=== PATIENT | male | born 1940 | race Caucasian/White ===

== ENCOUNTER 2016-09-26 14:39 | Inpatient (IN) | payer MEDICARE ==
[~2016-09-26] VITALS: Ht 167.6 cm; Wt 81.8 kg
[2016-10-01] MEDS ORDERED: ATOR10TA15 PO (10:52)
[2016-10-01] MEDS ORDERED: LISI20TA PO (10:52)
[2016-10-01] MEDS ORDERED: DILT-60 PO (10:52)
[2016-10-01] MEDS ORDERED: ALPR.25 PO (10:52)
[2016-10-01] MEDS ORDERED: HYDR-3580 PO (10:52)
--- NOTE | 2016-10-01 17:59 | MH ---
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 HISTORY OF THE PRESENT ILLNESS This patient is a 76-year-old white male who came to previous right total replacement arthroplasty in the past by the undersigned. The patient has had progressive arthritis of the left hip and is having progressive loss of motion. His care has been delayed because of bladder cancer and is undergoing treatment with intracystic chemotherapy. The patient is having difficulty using a cane and getting around. He is very limited and sometimes uses a wheelchair. The patient had conservative care including multiple injections in the left hip, oral anti-inflammatory medications, physical therapy, use of a gait aid. He now presents for surgical treatment. PAST MEDICAL HISTORY, SOCIAL HISTORY, FAMILY HISTORY AND REVIEW OF SYMPTOMS See attached notes. PHYSICAL EXAMINATION VITAL SIGNS: 5 feet 6 inches, 190 pounds, BMI 30.03, blood pressure 126/66. HEENT: Normocephalic, atraumatic. Pupils equal, round, reactive to light and accommodation. Extraocular motions intact. NECK: Supple. CHEST: Clear. HEART: Regular rate and rhythm. ABDOMEN: Soft, nontender, normoactive bowel sounds. MUSCULOSKELETAL: Left hip severe pain with range of motion. Pain especially with internal and external rotation. Flexion limited to 80 degrees, extension -10 degrees. Internal rotation 0, external rotation 30. Significant pain with range of motion. There is weakness with isolation of the left psoas muscle. NEUROLOGIC: Examination is within normal limits. IMPRESSION Osteoarthritis left hip / avascular necrosis. PLAN Left total hip replacement arthroplasty, direct anterior exposure. CONSENT The risks of surgery including infection, bleeding, loss of motion, continued pain, need for further surgery, neurologic and vascular injury. The patient's understands these issues and wishes to press on with surgery as outlined above. MD JOANIE Rogers/MARCELAL /5:33 PM /5:46 PM
[2016-10-02] MEDS ORDERED: ceFAZolin 2 GM PREMIX 50 ML IV SCH (08:30)
[2016-10-02] MEDS ORDERED: POVIDONE IODINE 7.5% SCRUB 118 ML BOTTLE TOPICAL SCH (08:30)
[2016-10-02] MEDS ORDERED: VANCOMYCIN 1000 MG/NS 250 ML (for <70 kg) IV SCH ×2 (08:30)
[2016-10-02] MEDS ORDERED: EXPAREL PERI-ARTICULAR INJECTION (TOTAL VOL. 60 ML) P-ARTICULR SCH ×2 (08:30)
[2016-10-02 08:45] VITALS: BP 159/74; PULSE 65; RESP 18; TEMP 97.9; O2SAT 98
[2016-10-02] MEDS ORDERED: MIDAZOLAM HCL 2 MG/2 ML VIAL ONE (09:22)
[2016-10-02] MEDS ORDERED: FAMOTIDINE 20 MG/2 ML VIAL ONE (09:22)
[2016-10-02] MEDS ORDERED: ACETAMINOPHEN 1000 MG/100 ML VIAL IV ONE (09:22)
[2016-10-02] MEDS ORDERED: fentaNYL CITRATE 250 MCG/5 ML AMP ONE ×2 (09:22→14:33)
[2016-10-02] MEDS ORDERED: CHLORHEXIDINE GLUCONATE 2 % 1 PACK (2 CLOTHS) TOPICAL PRN (09:30)
[2016-10-02] MEDS ORDERED: LACTATED RINGER'S 1000 ML IV PRN (09:30)
[2016-10-02] MEDS ORDERED: SODIUM CHLORID 0.9% 500 ML IV PRN (09:30)
[2016-10-02] MEDS ORDERED: INSULIN HUMAN REGULAR 1,000 UNITS/10 ML VIAL SQ PRN (09:30)
[2016-10-02] MEDS ORDERED: POVIDONE IODINE 5% (ANTISEPSIS KIT) 4 APPLICATIONS EACH NARE PRN (09:30)
[2016-10-02] MEDS ORDERED: METOPROLOL TARTRATE 25 MG TAB PO PRN (09:30)
[2016-10-02] MEDS ORDERED: NEOSTIGMINE 3 MG/3 ML SYR IV ONE (10:24)
[2016-10-02] MEDS ORDERED: PROPOFOL 200 MG/20 ML AMP IV ONE (10:24)
[2016-10-02] MEDS: TRANEXAMIC ACID INJ 855 MG in SODIUM CHLORIDE 0.9% INJ 100 ML IV SCH ×2 (10:25→11:18)
[2016-10-02] MEDS ORDERED: PHENYLEPH/NS 1000 MCG/10 ML SYR IV ONE (10:25)
[2016-10-02] MEDS ORDERED: LACTATED RINGER'S 1000 ML INJ 2,000 ML IV ONE (10:26)
[2016-10-02] MEDS ORDERED: GENTAMICIN SULFATE 80 MG/2 ML VIAL IRRIGATION ONE (11:02)
[2016-10-02] MEDS ORDERED: SODIUM CHLORIDE 0.9% FLUSH 5 ML FLUSH IVF PRN (12:15)
[2016-10-02] MEDS ORDERED: Post-op Orders (for Pharmacy) MISC XX ONE (12:15)
[2016-10-02] MEDS ORDERED: MORPHINE SULFATE 30 MG/30 ML PCA IV SCH (12:15)
[2016-10-02] MEDS ORDERED: ACETAMINOPHEN/HYDROcodone 325 MG/10 MG TAB PO PRN (12:15)
[2016-10-02] MEDS ORDERED: MISCELLANEOUS NURSING INFORMATION XX PRN (12:15)
[2016-10-02] MEDS ORDERED: NALOXONE HCL 0.4 MG/ML AMP IV PRN (12:15)
[2016-10-02] MEDS ORDERED: MORPHINE SULFATE 8 MG/ML INJ IM PRN (12:15)
[2016-10-02] MEDS ORDERED: MISCELLANEOUS PHARMACY INFORMATION XX ONE (12:15)
[2016-10-02] MEDS ORDERED: ALPRAZolam 0.25 MG TAB PO PRN (12:15)
--- NOTE | 2016-10-02 12:18 | PD.OP ---
cc: Shemar Servin MD Operative Report Date of Surgery: October 02, 2016 Preoperative Diagnosis: Osteoarthritis left hip, severe Postoperative Diagnosis: Same Procedure: Left total hip replacement arthroplasty, direct anterior exposure Anesthesia: Gen. Surgeon: Shemar Servin Spiral Tube Winder Helper(s): DUKE Sweeney Operation and Findings: EBL: 350 cc INDICATION: This patient presents with significant hip pain related to severe osteoarthritis of the left hip. The patient has had a previous right total hip replacement and has done well. Despite extensive conservative care this patient continues to be painful and now presents for surgical treatment. NOTE: Claudia Sweeney PA-C was present for the entire surgical procedure as my library services assistant. In my medical opinion her skill and care was necessary for the proper management of this patient. COMPONENTS: COMPANY: [employer] CUP: Pelzer, 56 mm, 100 series, gription surface LINER: Altrx 36, neutral STEM: Size 12, high offset, Corail, hydroxyapatite-coated HEAD: 36, metal, +5, 12/14 taper PROCEDURE: This patient was brought to the operating room and anesthetized in the supine position and positioned on the fracture table with both legs held extended. The left hip and leg was scrubbed with alcohol followed by Hibiclens followed by ChloraPrep and draped sterilely. Antibiotics were given within routine time window and a timeout was done. A 4 inch incision was made starting 2 cm distal and 2 cm lateral to the anterior superior iliac spine. The fascia monik was opened longitudinally. The interval between the fascia monik and the rectus was opened down to the capsule of the hip joint. Retractors were positioned allowing good visualization of the capsule. This was opened longitudinally and flaps were created. Stay sutures were utilized. Exposure was excellent. The neck was cut at the proper location using fluoroscopy as a guide. The head was removed. Deep retractors were positioned allowing good visualization of the acetabulum. Acetabulum was deepened down to the floor starting with a proper size reamer and reaming up to 55 mm. A trial was utilized. Fluoroscopy was used to check position and confirmed satisfactory alignment. The rim was reamed with a 56 mm reamer and the final cup was positioned in approximately 20 of anteversion and 40-45 of abduction. Position was satisfactory. A single hole eliminator was positioned followed by the final liner. The lifting hook was utilized. The leg was dropped to the floor, maximally externally rotated and brought across the midline. Retractors were positioned. A box osteotome was utilized followed by progressive broaching to the proper stem size. Trial reduction showed excellent alignment and fit. With 60 of external rotation the leg was dropped to the floor without evidence of anterior subluxation. The wound was irrigated. The final stem was inserted and was found to be very stable. The final reduction using the final head. Stability was as previously noted. Intraoperative x-rays were taken. The wound was irrigated copiously. Hemostasis was controlled. Local anesthesia was utilized. The capsule was repaired with #2 Tycron sutures. The fascia monik was repaired with running 0 PDS on a loop. Subcutaneous tissue was approximated with 2-0 Vicryl and skin with running intradermal 3-0 Vicryl followed by Steri-Strips. A sterile dressing was applied. The patient was awakened and taken to the recovery room in satisfactory condition. FINDINGS: There was severe osteoarthritis of the left hip. There was subchondral cystic changes in the acetabulum and femoral head. The final solution appeared be very satisfactory. No complication was appreciated. Shemar Servin MD October 02, 2016 12:18
[2016-10-02] MEDS ORDERED: XARE10TA PO (12:21)
[2016-10-02] MEDS ORDERED: HYDR-3583 PO (12:21)
--- NOTE | 2016-10-02 12:24 | HHI.FF ---
Face to Face Verification Diagnosis: (1) Primary osteoarthritis of left hip Physical Therapy Gait training Hip: Total hip, Protocol: Left, Progress to weight bearing Left LE Weight Bearing: WB as tolerated Nursing RN: 3 days/week x 2 weeks Dressing Changes: Do not change dressing I have seen patient Patrick Dasilva on 10/02/16. My clinical findings support the need for the requested home health care services because: Deconditioned w/ increased weakness Limited ability to care for self High risk of falls I certify that my clinical findings support that this patient is homebound because: Unsteady gait/balance Shemar Servin MD October 02, 2016 12:23
[2016-10-02] MEDS ORDERED: WALKER WHEELS/F1 MIS (12:25)
[2016-10-02] MEDS ORDERED: DO NOT ADM ANY ANTICOAGULANT DRUGS PRN (12:48)
[2016-10-02] MEDS: LACTATED RINGER'S 1000 ML INJ 1,000 ML IV SCH (13:00)
[2016-10-02] MEDS: PCA - TOTAL MG MORPHINE DELIVERED PER SHIFT SCH ×2 (14:00→21:17)
[2016-10-02] MEDS ORDERED: MORPHINE SULFATE 4 MG/ML INJ ONE (14:34)
--- NOTE | 2016-10-02 14:39 | RADRPT ---
EXAM DATE/TIME: 10/02/2016 11:06 [facility] COMPARISON: HIP LEFT (AP&LAT 2/3VWS) WO AP PELVIS, April 18, 2016, 13:12. INDICATIONS : Left total hip replacement. MEDICAL HISTORY : None. SURGICAL HISTORY : None. ENCOUNTER: Initial ACUITY: 1 day PAIN SCORE: Non-responsive. LOCATION: Left hip. FINDINGS: Left total hip arthroplasty is present. Hardware is intact. Alignment is anatomic. Visualized adjacen t pelvis is unremarkable. CONCLUSION: Satisfactory appearance of left ALEX Reinier Hyde MD on October 02, 2016 at 14:36 Board Certified Radiologist. This report was verified electronically.
[2016-10-02 15:00] VITALS: BP 135/79; PULSE 66; RESP 18; TEMP 96.8; O2SAT 98
[2016-10-02] MEDS ORDERED: ONDANSETRON HCL 4 MG/2 ML VIAL IV PRN (17:00)
[2016-10-02 19:00] VITALS: BP 138/76; PULSE 71; RESP 16; TEMP 98; O2SAT 95
[2016-10-02] MEDS: MAGNESIUM HYDROXIDE SUSP 30 ML CUP PO SCH (20:03)
[2016-10-02] MEDS: ATORVASTATIN 10 MG TAB PO SCH (20:03)
[2016-10-02] MEDS: SENNOSIDES 8.6 MG TAB PO SCH (20:04)
[2016-10-02] MEDS: SODIUM CHLORIDE 0.9% FLUSH 5 ML FLUSH IVF SCH (20:04)
[2016-10-02] MEDS ORDERED: NON-FORMULARY DRUG (Lisinopril-Hctz 1 TAB) PO SCH (21:00)
[2016-10-03] VITALS (7 sets, daily range): BP systolic 97–143; BP diastolic 51–69; PULSE 79–94; RESP 15–18; TEMP 96.7–99.8; O2SAT 93–97
[2016-10-03] MEDS: LACTATED RINGER'S 1000 ML INJ 1,000 ML IV SCH ×3 (02:10→22:52)
[2016-10-03] MEDS: PCA - TOTAL MG MORPHINE DELIVERED PER SHIFT SCH (06:00)
[2016-10-03 06:50] LABS: HEMATOCRIT 31.4 % (39.0-51.0); REVIEW FLAG FINAL
--- NOTE | 2016-10-03 07:53 | PD.ORT.PN ---
Subjective Subjective Remarks Looks good. Comfortable in bed. Limited ambulation yesterday Objective Vitals Vital Signs Date Time Temp Pulse Resp B/P Pulse Ox O2 Delivery O2 Flow Rate FiO2 10/03/16 04:00 98.8 84 17 121/63 95 10/03/16 00:00 98.7 84 15 97/58 94 10/02/16 21:17 16 10/02/16 19:00 98.0 71 16 138/76 95 10/02/16 15:00 96.8 66 18 135/79 98 10/02/16 14:00 98.4 80 16 173/74 98 Nasal Cannula 2 10/02/16 13:46 16 10/02/16 13:45 59 16 153/64 100 Nasal Cannula 2 10/02/16 13:30 60 16 153/64 100 Nasal Cannula 2 10/02/16 13:15 63 16 145/73 100 Nasal Cannula 2 10/02/16 13:00 65 16 146/61 96 Nasal Cannula 2 10/02/16 12:48 98.0 80 16 146/70 98 Nasal Cannula 2 10/02/16 08:45 97.9 65 18 159/74 98 I/O 10/02/16 10/02/16 10/02/16 10/03/16 10/03/16 10/03/16 07:00 15:00 23:00 07:00 15:00 23:00 Intake Total 2200 ml 1060 ml 1776 ml Output Total 750 ml 950 ml 500 ml Balance 1450 ml 110 ml 1276 ml Intake Oral 480 ml 960 ml IV Total 200 ml 580 ml 816 ml Other 2000 ml Output Urine Total 200 ml 950 ml 500 ml Estimated Blood Loss 200 ml Other 350 ml # Voids 1 # Bowel Movements 0 0 Result Diagram: 10/03/16 0557 Objective Remarks Incision dry. No drainage. No significant swelling. Minimal discomfort with range of motion. Negative home &. tenderness or swelling. Assessment & Plan Ortho Post Op Day #: 1 Problem List: Assessment and Plan Osteoarthritis left hip, severe. Left ALEX, direct anterior: POD #1. PLAN: Weightbearing as tolerated Xarelto for anticoagulation Hydrocodone for pain No dressing change Discharge later today or Thursday morning Home healthcare and home physical therapy Follow-up in 2 weeks. Shemar Servin MD October 03, 2016 07:53
--- NOTE | 2016-10-03 08:00 | HHI.DS ---
Discharge Summary Admission Date October 02, 2016 at 07:59 Discharge Date: October 04, 2016 Admitting Diagnosis Osteoarthritis hip, severe Diagnosis: (1) Primary osteoarthritis of left hip Diagnosis: Principal Procedures Left ALEX, direct anterior exposure Brief History This is a 76 year old male patient who presents with severe osteoarthritis left hip and significant subchondral sclerotic changes with subchondral cysts. The patient has had extensive conservative care including oral medications, use of a cane and walker, multiple injections in the left hip. Left hip treatment was delayed because of parallel treatment for bladder cancer. He has had a previous right hip replacement arthroplasty by the undersigned 5 years ago and has done well. CBC/BMP: 10/03/16 0557 Significant Findings Laboratory Tests Test 10/03/16 05:57 Hemoglobin 10.3 GM/DL (13.0-17.0) Hematocrit 31.4 % (39.0-51.0) PE at Discharge Incision dry. No drainage. No significant swelling. Minimal discomfort with range of motion. Negative home &. tenderness or swelling. Hospital Course The patient was taken to the operative suite on the date of admission. He had a total hip replacement performed under a general anesthetic. He had an unremarkable postoperative course. Pt Condition on Discharge: Good Discharge Disposition: Discharge Home Discharge Instructions Diet Instructions: As Tolerated, No Restrictions Activities You Can Perform: Weight Bearing as Goran Shemar Servin MD October 03, 2016 08:00
[2016-10-03] MEDS: MAGNESIUM HYDROXIDE SUSP 30 ML CUP PO SCH ×2 (08:04→20:40)
[2016-10-03] MEDS: LISINOPRIL 20 MG TAB PO SCH (08:05)
[2016-10-03] MEDS: HYDROCHLOROTHIAZIDE 12.5 MG CAP PO SCH (08:05)
[2016-10-03] MEDS: DILTIAZEM-CD 120 MG CAP ER PO SCH (08:06)
[2016-10-03] MEDS: SODIUM CHLORIDE 0.9% FLUSH 5 ML FLUSH IVF SCH ×2 (08:06→20:40)
[2016-10-03] MEDS: ACETAMINOPHEN/HYDROcodone 325 MG/10 MG TAB PO PRN ×2 (11:12→15:33)
[2016-10-03] MEDS ORDERED: RIVAROXABAN 10 MG TAB PO SCH (12:00)
[2016-10-03] MEDS: SENNOSIDES 8.6 MG TAB PO SCH (20:39)
[2016-10-03] MEDS: ATORVASTATIN 10 MG TAB PO SCH (20:39)
[2016-10-04] VITALS: BP 113/62; PULSE 75; RESP 17; TEMP 99; O2SAT 93
[2016-10-04 08:00] VITALS: BP 129/60; PULSE 80; RESP 18; TEMP 99; O2SAT 90
--- NOTE | 2016-10-04 08:21 | PD.ORT.PN ---
Subjective Post Op Day #: 2 Subjective Remarks Patient sitting upright in chair, just walked with PT. Feels ready to be d/c to home today. Left hip pain controlled. No new complaints. Objective Vitals Vital Signs Date Time Temp Pulse Resp B/P Pulse Ox O2 Delivery O2 Flow Rate FiO2 10/04/16 08:00 99.0 80 18 129/60 90 10/04/16 00:00 99.0 75 17 113/62 93 10/03/16 20:00 96.7 94 17 106/51 93 10/03/16 16:00 98.5 79 18 143/69 94 10/03/16 12:17 97 10/03/16 12:00 98.2 81 18 121/68 93 I/O 10/03/16 10/03/16 10/03/16 10/04/16 10/04/16 10/04/16 07:00 15:00 23:00 07:00 15:00 23:00 Intake Total 1776 ml 439 ml 720 ml 120 ml Output Total 500 ml 450 ml 200 ml Balance 1276 ml 439 ml 270 ml -80 ml Intake Oral 960 ml 720 ml 120 ml IV Total 816 ml 439 ml Output Urine Total 500 ml 450 ml 200 ml # Voids 3 # Bowel Movements 0 0 0 Result Diagram: 10/03/16 0557 Procedures Left ALEX, direct anterior exposure Objective Remarks Incision dry. No drainage. No significant swelling. Minimal discomfort with range of motion. Negative rene's . No tenderness or swelling. Assessment & Plan Ortho Post Op Day #: 2 Problem List: (1) Primary osteoarthritis of left hip Assessment and Plan Osteoarthritis left hip, severe. Left ALEX, direct anterior: POD #2. PLAN: Weightbearing as tolerated Xarelto for anticoagulation Hydrocodone for pain No dressing change Clear for discharge from an orthopedic standpoint. - Discharge today Home healthcare and home physical therapy Follow-up in 2 weeks. Lucia Sweeney October 04, 2016 08:21
[2016-10-04] MEDS: MAGNESIUM HYDROXIDE SUSP 30 ML CUP PO SCH (08:26)
[2016-10-04] MEDS: DILTIAZEM-CD 120 MG CAP ER PO SCH (08:27)
[2016-10-04] MEDS: LISINOPRIL 20 MG TAB PO SCH (08:27)
[2016-10-04] MEDS: HYDROCHLOROTHIAZIDE 12.5 MG CAP PO SCH (08:27)
[2016-10-04] MEDS: ACETAMINOPHEN/HYDROcodone 325 MG/10 MG TAB PO PRN (08:31)
== END 2016-10-04 10:55 | disposition home health service (06) | DRG 470 ==
LOC: HSDI 10-02 07:59 → N06B 10-02 14:38
PROVIDERS: ADMIT Orthopaedic Surgery Orthopaedic Surgery of the Spine; ATTEND Orthopaedic Surgery Orthopaedic Surgery of the Spine
PROC: 0SRB02A Replacement of Left Hip Joint with Metal on Polyethylene Synthetic Substitute, Uncemented, Open Approach (ICD-10-PCS; principal; 2016-10-02 10:01)
DX: M16.12 Unilateral primary osteoarthritis, left hip (principal); M87.9 Osteonecrosis, unspecified; C67.9 Malignant neoplasm of bladder, unspecified; I10 Essential (primary) hypertension; K21.9 Gastro-esophageal reflux disease without esophagitis; Z87.891 Personal history of nicotine dependence
CPT/HCPCS: 73502; 76000; 85014; 85018; 86850; 86900; 86901; 86920; 94150; C1776; J0131; J0690; J1580; J2250; J2270; J2370; J2710; J3010; J3370; J7050; J7120